=== PATIENT | male | born 1960 | race African-American/Black ===

== ENCOUNTER 2023-05-12 13:42 | Outpatient (CLI) | payer OTHER | END 2023-05-12 13:43 | disposition home or self-care (01) | LOC: CSHMRI 13:42 | PROVIDERS: ATTEND Neurological Surgery | DX: M48.062 Spinal stenosis, lumbar region with neurogenic claudication (principal); M47.816 Spondylosis without myelopathy or radiculopathy, lumbar region; M25.78 Osteophyte, vertebrae; M47.817 Spondylosis without myelopathy or radiculopathy, lumbosacral region | CPT/HCPCS: 72148 ==